=== PATIENT | female | born 1950 | race Caucasian/White ===

== ENCOUNTER 2022-11-22 14:02 | Emergency (ER) | payer OTHER, SELFPAY ==
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
[2022-11-22 14:42] VITALS: BP 146/96; PULSE 92; RESP 18; TEMP 36.6; O2SAT 98; BMI 25.7
== END 2022-11-22 15:13 | disposition home or self-care (01) ==
PROVIDERS: Emergency Provider Emergency Medicine
DX: S40.012A Contusion of left shoulder, initial encounter (principal); V43.62XA Car passenger injured in collision with other type car in traffic accident, initial encounter; Y93.9 Activity, unspecified; Y92.410 Unspecified street and highway as the place of occurrence of the external cause; Y99.9 Unspecified external cause status
CPT/HCPCS: 99282

== ENCOUNTER 2023-04-25 05:20 | Inpatient (IN) | payer OTHER, SELFPAY ==
[2023-04-25] VITALS (7 sets, daily range): BP systolic 113–178; BP diastolic 62–90; PULSE 61–72; RESP 16–17; TEMP 36.1–36.9; O2SAT 96–99; BMI 26.1; BMI 28.1
--- NOTE | ~2023-04-25 | CT_ITS ---
EXAMINATION: CT ABDOMEN AND PELVIS WITHOUT AND WITH IV CONTRAST CLINICAL INFORMATION: Diverticulitis with bleed. COMPARISON: None. TECHNIQUE: A volumetric helical CT acquisition of the abdomen and pelvis is performed prior to and following intravenous administration of contrast. Axial images are presented at 0. 0.6 mm and 5 mm slice thickness. Coronal and sagittal reformatted images were generated at the technologist workstation. The postcontrast images are obtained in the arterial and venous phases. Intravenous contrast: 85 mL of Omnipaque 350. This CT examination was performed using dose optimization techniques as appropriate, variously including the following: *Automated exposure control *Adjustment of mA and/or kV according to patient size (this includes techniques or standardized protocols for targeted exams where dose is matched to indication/reason for exam; i.e. extremities or head) *Use of iterative reconstruction technique DLP: 925 mGy-cm. FINDINGS: LUNG BASES: No acute findings. Incidentally noted is atherosclerotic calcification of the visualized right coronary artery. LIVER, GALLBLADDER, AND BILIARY TREE: The liver has normal size, shape, and attenuation. No focal hepatic lesion. The gallbladder is grossly normal; no radiopaque gallstones, wall thickening, or pericholecystic fluid. No bile duct dilatation. PANCREAS: Normal. No evidence of pancreatic mass, edema or ductal dilatation. SPLEEN: Normal. ADRENAL GLANDS: Normal. KIDNEYS AND URETERS: The kidneys have normal size, shape, and attenuation. No hydroureteronephrosis, urolithiasis or perinephric edema. BLADDER: Normal. BOWEL AND PERITONEUM: Stomach and small bowel, including terminal ileum, are unremarkable. The appendix is normal. No dilated bowel loops. There are diverticula of the right and left colon, most numerous along the sigmoid colon. There is circumferential wall thickening of the descending and sigmoid colon. On the arterial phase postcontrast images, the mucosa of the thick-walled colon is hyperenhancing. Since the descending colon is underdistended, hyperenhancing mucosa can be difficult to discriminate from any mild intraluminal bleed. When comparing the arterial with venous phase postcontrast images, there is no convincing migration of contrast into the bowel lumen. There is haziness of fat around the inflamed descending colon. No bowel perforation. No abscess. The rectum is underdistended and otherwise unremarkable. ABDOMINAL WALL: Unremarkable. LYMPH NODES: No pathologic sized lymph nodes in the abdomen or pelvis. No inguinal lymphadenopathy. VASCULATURE: Abdominal aorta is normal in caliber and its branches are widely patent. Mild atherosclerosis of the aorta. Inferior vena cava is normal. Within the pelvis, the parauterine veins are dilated and this could be a manifestation of chronic venous valve incompetence with venous reflux. PELVIC VISCERA: No uterine or adnexal mass. No pelvic free fluid. MUSCULOSKELETAL: Mild scoliosis of the degenerated lumbar spine. Degenerative disc disease of L4-L5. Mild disc space narrowing and vacuum disc phenomenon at L5-S1. Also, moderate facet osteoarthritis and grade 1 anterolisthesis at L4-L5. No suspicious bone lesions. CT/CT gi bleed abd pel wo/w IVcon IMPRESSION: * Circumferential wall thickening of the descending and sigmoid colon with pericolonic fat stranding and hyperenhancing mucosa. Findings consistent with an active left-sided colitis. Based on review of the arterial and venous phase images, there is no convincing active extravasation of contrast into the lumen of the inflamed colon. * Colonic diverticulosis is noted.
--- NOTE | 2023-04-25 07:17 | ED.ABDPAIN ---
HPI - Abdominal Pain General Chief Complaint: Abdominal Pain Stated Complaint: stomach pain, blood when defecating Time Seen by Provider: 04/25/23 07:08 Source: patient Mode of arrival: ambulatory Limitations: no limitations History of Present Illness HPI narrative: Patient is 72 years old complaining of diffuse lower abdominal pain since last night and having multiple bowel movements with blood. Blood is maroon-colored with some clots in between patient had colonoscopy 3 months ago everything was normal except for few polyps no history of hemorrhoids no prior history of rectal bleed. Patient denies any dizziness had low-grade fever yesterday also complaining of nausea urinary complaints had multiple bowel movements most of them are bloody without much stool patient had salmon at home prior to symptoms starting other family member also had same food without any symptoms Related Data Previous Rx's Medication Instructions Recorded ciprofloxacin HCl 500 mg tablet 500 mg PO BID #20 tabs 04/25/23 (Cipro) metronidazole 500 mg tablet 500 mg PO BID 7 days #20 tabs 04/25/23 Allergies Allergy/AdvReac Type Severity Reaction Status Date / Time No Known Allergies Allergy Verified 11/22/22 14:51 Review of Systems Review of Systems Yes all other systems are reviewed and are negative [facility] Past Medical History Medical History High cholesterol Hypertension Vitamin B 12 deficiency Social History Social History Alcohol intake: never Smoked in Last 30 Days: No Use of substances other than those prescribed or required for medical reasons: No Advance Directives: No Advance Directives Information Provided: No Physical Exam ED Vital Signs: Vital Signs - 24 hr 04/25/23 05:31 04/25/23 09:56 Temperature 97 F 98.1 F Pulse Rate 69 72 Respiratory Rate 16 16 Blood Pressure 178/90 H 168/88 H Pulse Oximetry 99 99 Oxygen Delivery Method Room Air Room Air BMI result Body Mass Index 26.1 Appearance: Alert. Oriented X3. No acute distress. Eyes: PERRLA, No Nystagmus ENT: Pharynx normal. Oral Mucosa moist Neck: Normal inspection. Neck supple. CVS: Normal heart rate and rhythm. Pulses normal. Respiratory: No respiratory distress. Equal air entry bilateral, no wheezing/rales/rhonchi Abdomen: Soft diffuse tenderness suprapubic and left lower quadrant no rebound tenderness or guarding. Bowel sounds are present, no mass palpable, no CVA tenderness rectal: Bright red blood on the finger no hemorrhoid palpable Skin: Skin warm and dry. Normal skin color. Normal skin turgor. Extremities: No lower extremity edema. No calf tenderness Neuro: Oriented X 3. Medical Decision Making Medical Decision Making [facility] Narrative: 11:00 Patient has acute colitis with stable labs slight leukocytosis patient able to drink liquids at home will give IV Zosyn 1 dose in the ER will re-evaluate the patient with p.o. challenge Lab Data [facility] Lab Attestation statement: I reviewed the patient's lab results. 04/25/23 07:38 04/25/23 07:38 Labs: Lab Results 04/25/23 04/25/23 04/25/23 Range/Units 07:38 07:38 07:38 WBC 12.1 H (4.8-10.8) X10*3/uL RBC 4.59 (4.20-5.50) X10*6/uL Hgb 13.4 (12.0-16.0) g/dl Hct 38.9 (37.0-47.0) % MCV 84.7 (80.0-98.0) fL MCH 29.2 (27.0-33.0) pg MCHC 34.4 (31.0-35.0) g/dl RDW 13.1 (11.0-16.0) % Plt Count 254 (160-400) X10*3/uL MPV 10.5 (9.4-12.3) fL Immature Gran % (Auto) 0.3 (0.0-0.4) % Neut % (Auto) 81.1 H (45-73) % Lymph % (Auto) 14.0 L (20-40) % Tyler % (Auto) 3.9 (2-11) % Eos % (Auto) 0.2 (0-4) % Baso % (Auto) 0.5 (0-2) % Lymph # (Auto) 1.7 (1.2-4.9) X10*3/uL Tyler # (Auto) 0.5 (0.1-1.2) X10*3/uL Eos # (Auto) 0.0 (0.0-0.4) X10*3/uL Baso # (Auto) 0.1 (0.0-0.2) X10*3/uL Abs Immat Gran (auto) 0.04 H (0.00-0.03) X10*3/uL Absolute Neuts (auto) 9.8 H (2.0-8.3) x10*3/uL Absolute Nucleated RBC 0.000 (0.0-0.012) X10*3/uL Nucleated RBC % (auto) 0.0 (0.0-0.2) /100WBC PT 12.4 (10.0-13.1) SEC INR 1.1 (0.9-1.1) Sodium (135-145) mmol/L Potassium (3.3-5.1) mmol/L Chloride (96-108) mmol/L Carbon Dioxide (22-29) mmol/L Anion Gap (12-20) BUN (9-16) mg/dL Creatinine (0.5-1.4) mg/dL Estim Creat Clear Calc Estimated GFR Random Glucose (60-115) mg/dL Lactic Acid 1.4 (0.5-2.0) mmol/L Calcium (8.4-10.2) mg/dL Total Bilirubin (0.0-1.0) mg/dL AST (5-31) U/L ALT (0-31) U/L Alkaline Phosphatase (39-117) U/L Total Protein (6.5-8.0) g/dL Albumin (3.5-5.0) g/dL Stool Occult Blood (NEGATIVE) Blood Type Antibody Screen 04/25/23 04/25/23 04/25/23 Range/Units 07:38 07:48 08:29 WBC (4.8-10.8) X10*3/uL RBC (4.20-5.50) X10*6/uL Hgb (12.0-16.0) g/dl Hct (37.0-47.0) % MCV (80.0-98.0) fL MCH (27.0-33.0) pg MCHC (31.0-35.0) g/dl RDW (11.0-16.0) % Plt Count (160-400) X10*3/uL MPV (9.4-12.3) fL Immature Gran % (Auto) (0.0-0.4) % Neut % (Auto) (45-73) % Lymph % (Auto) (20-40) % Tyler % (Auto) (2-11) % Eos % (Auto) (0-4) % Baso % (Auto) (0-2) % Lymph # (Auto) (1.2-4.9) X10*3/uL Tyler # (Auto) (0.1-1.2) X10*3/uL Eos # (Auto) (0.0-0.4) X10*3/uL Baso # (Auto) (0.0-0.2) X10*3/uL Abs Immat Gran (auto) (0.00-0.03) X10*3/uL Absolute Neuts (auto) (2.0-8.3) x10*3/uL Absolute Nucleated RBC (0.0-0.012) X10*3/uL Nucleated RBC % (auto) (0.0-0.2) /100WBC PT (10.0-13.1) SEC INR (0.9-1.1) Sodium 143 (135-145) mmol/L Potassium 3.2 L (3.3-5.1) mmol/L Chloride 106 (96-108) mmol/L Carbon Dioxide 29 (22-29) mmol/L Anion Gap 11 L (12-20) BUN 18 H (9-16) mg/dL Creatinine 0.79 (0.5-1.4) mg/dL Estim Creat Clear Calc 48.6 Estimated GFR > 60 Random Glucose 121 H (60-115) mg/dL Lactic Acid (0.5-2.0) mmol/L Calcium 9.0 (8.4-10.2) mg/dL Total Bilirubin 0.5 (0.0-1.0) mg/dL AST 15 (5-31) U/L ALT 10 (0-31) U/L Alkaline Phosphatase 69 (39-117) U/L Total Protein 6.6 (6.5-8.0) g/dL Albumin 4.1 (3.5-5.0) g/dL Stool Occult Blood POSITIVE (NEGATIVE) Blood Type O Positive Antibody Screen NEGATIVE Radiology Impression Discussion of test interpretation with radiology: I have reviewed the radiologist's reading. Radiologist Impression: CT/CT gi bleed abd pel wo/w IVcon IMPRESSION: *? Circumferential wall thickening of the descending and sigmoid colon with pericolonic fat stranding and hyperenhancing mucosa. Findings consistent with an active left-sided colitis. Based on review of the arterial and venous phase images, there is no convincing active extravasation of contrast into the lumen of the inflamed colon. *? Colonic diverticulosis is noted. Medications Administered Discontinued Medications Generic Name Dose Route Start Last Admin Trade Name Freq PRN Reason Stop Dose Admin Sodium Chloride 1,000 mls @ 999 mls/hr 04/25/23 07:18 04/25/23 08:47 Ns IV 04/25/23 08:18 Infused .Q1H1M ONE Infusion Piperacillin Sod/Tazobactam 50 mls @ 100 mls/hr 04/25/23 11:16 04/25/23 11:59 Sod 3.375 gm/ Sodium Chloride IV 04/25/23 11:45 Infused ONCE ONE Infusion Iohexol 100 ml 04/25/23 09:50 04/25/23 09:51 Iohexol 350 Mg/Ml 100 Ml Infus..Btl IV 04/25/23 09:51 85 ml ONCE ONE Administration Morphine Sulfate 4 mg 04/25/23 07:18 04/25/23 07:46 Morphine Sulfate 4 Mg/Ml Cartridge IVPUSH 04/25/23 07:19 4 mg ONCE ONE Administration Protocol Ondansetron HCl 4 mg 04/25/23 07:18 04/25/23 07:46 Ondansetron Hcl 4 Mg/2 Ml Vial IVPUSH 04/25/23 07:19 4 mg ONCE ONE Administration Discharge Plan Discharge Clinical Impression: Acute hemorrhagic colitis Patient Disposition: Home, Self-Care Instructions: Colitis (ED) Additional Instructions: Drink plenty of fluids Clear fluids advance as tolerated Take antibiotics as prescribed Follow with PCP if not better or report to the ER if worsening of bleeding Prescriptions: New ciprofloxacin HCl [Cipro] 500 mg tablet 500 mg PO BID Qty: 20 0RF metronidazole 500 mg tablet 500 mg PO BID 7 Days Qty: 20 0RF
[2023-04-25] MEDS: 0.9 % Sodium Chloride 1,000 ML 999 ML IV (07:46)
[2023-04-25] MEDS: Morphine Sulfate 4 MG/ML CARTRIDGE IVPUSH ×2 (07:46→15:01)
[2023-04-25] MEDS: ondansetron HCL 4 MG/2 ML VIAL IVPUSH (07:46)
--- NOTE | 2023-04-25 07:52 | PC.NURSE ---
iv inserted, labs drawn, ivf started per order, pt medicated per order, family at bedside, call jaramillo within reach, will continue to monitor.
[2023-04-25 07:55] LABS: MANUAL DIFF FLAG NO
[2023-04-25 07:57] LABS: Basophils Absolute Auto 0.1 X10*3/uL (0.0-0.2); Basophils Percent Auto 0.5 % (0-2); Eosinophils Percent Auto 0.2 % (0-4); Hematocrit 38.9 % (37.0-47.0); Hemoglobin 13.4 g/dl (12.0-16.0); Imm Gran Abs Auto 0.04 X10*3/uL (0.00-0.03); Imm Gran Pct Auto 0.3 % (0.0-0.4); Lymphocytes Absolute Auto 1.7 X10*3/uL (1.2-4.9); Mean Corpuscular HGB Conc 34.4 g/dl (31.0-35.0); Mean Corpuscular Hemoglobin 29.2 pg (27.0-33.0); Mean Corpuscular Volume 84.7 fL (80.0-98.0); Mean Platelet Volume 10.5 fL (9.4-12.3); Monocytes Absolute Auto 0.5 X10*3/uL (0.1-1.2); Monocytes Percent Auto 3.9 % (2-11); Neutrophils Absolute Auto 9.8 x10*3/uL (2.0-8.3); Neutrophils Percent Auto 81.1 % (45-73); Platelet Count 254 X10*3/uL (160-400); Red Blood Count 4.59 X10*6/uL (4.20-5.50); Red Cell Distribution Width 13.1 % (11.0-16.0); White Blood Count 12.1 X10*3/uL (4.8-10.8)
[2023-04-25 07:58] LABS: OBS Int Ctl Valid YES; OBS1 POSITIVE (NEGATIVE)
[2023-04-25 08:01] LABS: INTERNATIONAL NORM RATIO 1.1 (0.9-1.1); Prothrombin Time 12.4 SEC (10.0-13.1)
[2023-04-25 08:08] LABS: Lactic Acid 1.4 mmol/L (0.5-2.0)
[2023-04-25 08:50] LABS: Anion Gap 11 (12-20)
[2023-04-25 08:55] LABS: Alanine Aminotransferase 10 U/L (0-31); Albumin Level 4.1 g/dL (3.5-5.0); Alkaline Phosphatase 69 U/L (39-117); Aspartate Amino Transferase 15 U/L (5-31); Bilirubin Total 0.5 mg/dL (0.0-1.0); Blood Urea Nitrogen 18 mg/dL (9-16); Carbon Dioxide 29 mmol/L (22-29); Chloride 106 mmol/L (96-108); Creatinine Clr Calc Pharmacy 48.6; Estimated Glomerular Filt Rate > 60; Glucose Random 121 mg/dL (60-115); Potassium 3.2 mmol/L (3.3-5.1); Sodium 143 mmol/L (135-145); Total Protein 6.6 g/dL (6.5-8.0)
[2023-04-25] MEDS: iohexoL 350 MG/ML 100 ML INFUS..BTL IV (09:51)
--- NOTE | 2023-04-25 09:58 | PC.NURSE ---
patient a&ox3, family at bedside, vss, pt states her pain is currently 0/10, pt awaiting results of ct scan, call jaramillo within reach, will continue to monitor.
[2023-04-25] MEDS: Piperacillin Sodium/Tazobactam 3.375 GM in 0.9 % Sodium Chloride 50 ML IV ×3 (11:29→23:17)
--- NOTE | 2023-04-25 11:31 | PC.NURSE ---
pt medicated per MAR.
--- NOTE | 2023-04-25 14:00 | PC.NURSE ---
pt attempted PO challange per provider request- pt began having abd pain after po challange. provider notified.
--- NOTE | 2023-04-25 14:09 | PHA.MEDREC ---
Pharmacy Consult ? Medication Reconciliation Pharmacy has completed the medication reconciliation. Spoke to patient and daughter at bedside. Patient had card with meds on it.
--- NOTE | 2023-04-25 14:38 | PC.NURSE ---
patient a&ox3, vss, family at bedside, pt states since having po her pain is coming in waves ranging form 2/3 up to 10, provider is aware pt failed po challenge, call jaramillo within reach, will continue to monitor
--- NOTE | 2023-04-25 15:05 | PC.NURSE ---
pt medicated for pain per order
--- NOTE | 2023-04-25 15:20 | PM.IMHP ---
History of Present Illness Date of Service: 04/25/23 Attending physician on admission: Peggy Ulloa Chief Complaint: abdominal pain This is a 72 year female history of hypertension, hyperlipidemia who presents to the emergency department with complaints of abdominal pain. She began having left lower quadrant abdominal pain last evening around 17:00. She has had multiple bloody bowel movements with some clots. She has had a associated subjective fever and chills. Due to the persistent nature of her symptoms she presented to the emergency department for evaluation. Lab work was significant for leukocytosis of 12.1, mild hypokalemia with potassium of 3.2. CT scan of the abdomen showing circumferential wall thickening of the descending and sigmoid colon with pericolonic fat stranding consistent with active left-sided colitis. She was treated with a dose of IV Zosyn and initially the plan was to discharge her home however she was unable to tolerate p.o. and required multiple doses of IV narcotics for adequate pain control. For this reason the decision was made to admit her to the hospital for further management of acute colitis. Of note patient is a Jainism and will not accept any blood products. She had a colonoscopy in January which was reportedly normal. Review of Systems Review of Systems: Yes all other systems are reviewed and are negative Constitutional: Constitutional: Denies chills and Denies fever(s) ENT: Denies dizziness Cardiovascular: Cardiovascular: Denies chest pain, Denies palpitations and Denies dyspnea Respiratory: Respiratory: Denies cough and Denies dyspnea Gastrointestinal: Gastrointestinal: Reports abdominal pain, Reports hematochezia and Reports nausea Neurologic: Denies dizziness Endocrine: Endocrine: Denies palpitations [facility] Medical History High cholesterol Hypertension Vitamin B 12 deficiency Functional capacity: independent ambulation Family History (Updated 04/25/23 @ 15:26 by ZACHARY Mccarthy) Other Heart disease Social History Household Members: None Housing: Apartment Alcohol intake: never Patient Tobacco Use Status: Never used Tobacco Smoked in Last 30 Days: No Second Hand Smoke Exposure: No Use of substances other than those prescribed or required for medical reasons: No Currently Displaying Signs/Symptoms of Drug Intoxication Withdrawal: No Any prior treatment program specific to substance use: No Have you been hit, kicked, punched, or otherwise hurt by someone within the past year? If so, by whom?: No Do you feel safe in your current relationship?: No Is there a partner from a previous relationship who is making you feel unsafe now?: No Are you made to feel afraid or neglected: No Advance Directives: No Advance Directives Information Provided: No Do you have thoughts of harming others: None Do you have a plan to hurt others: No Plan Recently lost weight without trying: No Nutrition Risks: No Nutritional Risk Patient : No : No Poor oral hygiene: No service: No Current occupational status: retired [employer] Allergies Allergy/AdvReac Type Severity Reaction Status Date / Time No Known Allergies Allergy Verified 11/22/22 14:51 Active Medications: Current Medications Acetaminophen (Acetaminophen 325 Mg Tablet) 650 mg PO Q6H PRN PRN Reason: Pain, Mild (Pain Scale 1-3) Sodium Chloride (Ns) 1,000 mls @ 100 mls/hr IVCONT .Q10H [facility] Morphine Sulfate (Morphine Sulfate 2 Mg/Ml Cartridge) 2 mg IVPUSH Q3H PRN; Protocol PRN Reason: Pain, Severe (Pain Scale 7-10) Ondansetron HCl (Ondansetron Hcl 4 Mg/2 Ml Vial) 4 mg IVPUSH Q8H PRN PRN Reason: Nausea and Vomiting Pharmacy Consult (Consult Rx Perform Med Rec) 1 each MISCELLANE ONCE PRN PRN Reason: Consult order Sodium Chloride (0.9 % Sodium Chloride Flush 3 Ml Syringe) 3 ml IVFLUSH QSHIFT [facility] Home Medications Medication Instructions Recorded Confirmed Last Taken Type acetaminophen 325 mg tablet 650 mg PO Q6H PRN Pain 04/25/23 04/25/23 04/24/23 History (Tylenol) atorvastatin 10 mg tablet 10 mg PO Q OTHER DAY 04/25/23 04/25/23 04/22/23 History chlorthalidone 25 mg tablet 25 mg PO DAILY 04/25/23 04/25/23 04/24/23 History cholecalciferol (vitamin D3) 50 50 mcg PO DAILY 04/25/23 04/25/23 04/24/23 History mcg (2,000 unit) tablet (Vitamin D3) loratadine 10 mg tablet 10 mg PO DAILY 04/25/23 04/25/2304/24/23 History losartan 50 mg tablet 50 mg PO DAILY 04/25/23 04/25/23 04/24/23 History Physical Exam Vital Signs and Narrative: Vital Signs: Last Vital Signs Temp 97.6 F 04/25/23 14:00 Pulse 65 04/25/23 14:00 Resp 16 04/25/23 14:00 BP 113/62 04/25/23 14:00 Pulse Ox 96 04/25/23 14:00 O2 Del Method Room Air 04/25/23 14:00 BMI result Body Mass Index 26.1 Const: General: cooperative, no acute distress, alert and awake Nutritional Appearance: average body habitus Orientation/consciousness: patient oriented x3 Eyes: Pupils: Equal, round and reactive pupils present Resp: Effort & Inspection: normal respiratory effort, able to speak in complete sentences, no respiratory distress and no use of accessory muscles Auscultation: clear to auscultation bilaterally Cardio: Rate: regular rate Heart sounds: S1 normal heart sound present and S2 normal heart sound present GI: Other: tender to palpation LLQ, no guarding or rebound Inspection: No distended Palpation (GI): Soft to palpation Neuro: General: patient oriented x3, moves all extremities and CN's II-XI intact bilaterally Cranial nerves: Yes Equal, round and reactive pupils present Extrem: General: Yes no pedal edema Psych: Affect: normal affect Attitude: cooperative Results Labs 04/25/23 07:38 04/25/23 08:29 Labs: Laboratory Results - last 24 hr 04/25/23 04/25/23 04/25/23 07:38 07:38 07:38 MCV 84.7 MCH 29.2 MCHC 34.4 RDW 13.1 Plt Count 254 MPV 10.5 Immature Gran % (Auto) 0.3 Neut % (Auto) 81.1 H Lymph % (Auto) 14.0 L [place] % (Auto) 3.9 Eos % (Auto) 0.2 Baso % (Auto) 0.5 Lymph # (Auto) 1.7 [place] # (Auto) 0.5 Eos # (Auto) 0.0 Baso # (Auto) 0.1 Abs Immat Gran (auto) 0.04 H Absolute Neuts (auto) 9.8 H Absolute Nucleated RBC 0.000 Nucleated RBC % (auto) 0.0 PT 12.4 INR 1.1 Anion Gap Estim Creat Clear Calc Estimated GFR Random Glucose Lactic Acid 1.4 Calcium Total Bilirubin AST ALT Alkaline Phosphatase Total Protein Albumin Stool Occult Blood Blood Type Antibody Screen 04/25/23 04/25/23 04/25/23 07:38 07:48 08:29 MCV MCH MCHC RDW Plt Count MPV Immature Gran % (Auto) Neut % (Auto) Lymph % (Auto) [place] % (Auto) Eos % (Auto) Baso % (Auto) Lymph # (Auto) [place] # (Auto) Eos # (Auto) Baso # (Auto) Abs Immat Gran (auto) Absolute Neuts (auto) Absolute Nucleated RBC Nucleated RBC % (auto) PT INR Anion Gap 11 L Estim Creat Clear Calc 48.6 Estimated GFR > 60 Random Glucose 121 H Lactic Acid Calcium 9.0 Total Bilirubin 0.5 AST 15 ALT 10 Alkaline Phosphatase 69 Total Protein 6.6 Albumin 4.1 Stool Occult Blood POSITIVE Blood Type O Positive Antibody Screen NEGATIVE Imaging Radiologist's Impressions: Impressions Abdomen/Pelvis CT 04/25/23 09:49 IMPRESSION: * Circumferential wall thickening of the descending and sigmoid colon with pericolonic fat stranding and hyperenhancing mucosa. Findings consistent with an active left-sided colitis. Based on review of the arterial and venous phase images, there is no convincing active extravasation of contrast into the lumen of the inflamed colon. * Colonic diverticulosis is noted. Assessment and Plan (1) Acute hemorrhagic colitis: Status: Acute Plan This is a 72-year-old female with history of hypertension, hyperlipidemia who presents to the emergency department with left lower quadrant abdominal pain and rectal bleeding found to have acute colitis Acute colitis Likely infectious, lactic acid within normal limits no evidence of sepsis continue zosyn started in ED NPO advance as tolerated IVF, pain management GI consultation Rectal bleeding secondary to colitis currently normal H/H, will repeat CBC now pt is Jainism and will not accept blood products Hypokalemia likely r/t GI losses replace and follow BMP HTN hold bp meds due to active infection/soft bp HLD hold statin while NPO dvt ppx - mechanical devices secondary to rectal bleeding HCP - her oldest daughter Melisa Code status - full code Given acute colitis, rectal bleeding will likely need 2 midnight stay in the hospital for close monitoring for IV antibiotics, IV pain control, specialist evaluation Time Spent With Patient Time: Total time managing care of this patient today ____ minutes. Quality Stroke Does the patient have a stroke diagnosis?: No VTE Prior VTE?: No VTE Risk Level:: Medical - moderate - high VTE Device Contraindication: N/A - Device Ordered VTE Drug Contraindication: Treatment Not Indicated
--- NOTE | 2023-04-25 15:35 | MHC.EDTECH ---
THIS PCT ASSUMED CARE OF PT AT 1500 ,VITALS SIGN TAKEN ,REPEATED LAB DRAWN AND SENT TO LAB ,PT DRANK 120 ML WATER ,PT DAUGHTER AT BED SIDE ,PT IS COMFORTABLE AND IS WATCHING TELEVISION .
[2023-04-25] MEDS: 0.9 % Sodium Chloride Flush 3 ML SYRINGE IVFLUSH (15:46)
[2023-04-25] MEDS: Potassium Chloride Packet 20 MEQ PACKET 40 MEQ PO (15:46)
[2023-04-25] MEDS: 0.9 % Sodium Chloride 1,000 ML 100 ML IVCONT (15:46)
[2023-04-25 15:49] LABS: Hemoglobin 11.7 g/dl (12.0-16.0); Mean Corpuscular HGB Conc 33.4 g/dl (31.0-35.0); Mean Corpuscular Hemoglobin 28.5 pg (27.0-33.0); Mean Corpuscular Volume 85.2 fL (80.0-98.0); Mean Platelet Volume 10.7 fL (9.4-12.3); Platelet Count 219 X10*3/uL (160-400); Red Blood Count 4.11 X10*6/uL (4.20-5.50); Red Cell Distribution Width 13.2 % (11.0-16.0); White Blood Count 10.8 X10*3/uL (4.8-10.8)
--- NOTE | 2023-04-25 15:50 | PC.NURSE ---
pt medicated per order, ivf started per order, will continue to monitor.
--- NOTE | 2023-04-25 18:48 | MHC.EDTECH ---
patient was given clear liquid diet tray ,urine sample collected and sent to lab .
[2023-04-25 18:55] LABS: Appearance Urine Clear; Color Urine Yellow; Glucose Urine UA Negative (Negative); Leukocyte Esterase Urine Negative (Negative); Nitrite Urine Negative (Negative); PH 6.5 (5.0-9.0); Specific Gravity - Urine >= 1.030 (1.005-1.025); Urine Blood Negative (Negative); Urine Ketones Negative (Negative); Urine Protein Negative (Neg-Trace)
--- NOTE | 2023-04-25 19:07 | PC.NURSE ---
iv antibiotics running per order
--- NOTE | 2023-04-25 19:46 | MHC.EDTECH ---
pt vitals sign taken ,pt has a bed on [facility] ,pt is on her way to [facility] .
[2023-04-26] MEDS: Morphine Sulfate 2 MG/ML CARTRIDGE IVPUSH (00:54)
[2023-04-26] MEDS: 0.9 % Sodium Chloride 1,000 ML 100 ML IVCONT ×3 (02:50→22:50)
[2023-04-26 04:00] VITALS: BP 123/66; PULSE 62; RESP 15; TEMP 36.3
[2023-04-26] MEDS: Piperacillin Sodium/Tazobactam 3.375 GM in 0.9 % Sodium Chloride 50 ML IV ×3 (05:19→17:47)
[2023-04-26 06:04] LABS: Hemoglobin 11.2 g/dl (12.0-16.0); Mean Corpuscular HGB Conc 32.9 g/dl (31.0-35.0); Mean Corpuscular Hemoglobin 28.9 pg (27.0-33.0); Mean Corpuscular Volume 87.6 fL (80.0-98.0); Mean Platelet Volume 11.5 fL (9.4-12.3); Platelet Count 192 X10*3/uL (160-400); Red Blood Count 3.88 X10*6/uL (4.20-5.50); Red Cell Distribution Width 13.5 % (11.0-16.0); White Blood Count 8.8 X10*3/uL (4.8-10.8)
[2023-04-26 06:27] LABS: Anion Gap 11 (12-20); Blood Urea Nitrogen 8 mg/dL (9-16); Calcium 8.5 mg/dL (8.4-10.2); Carbon Dioxide 25 mmol/L (22-29); Chloride 108 mmol/L (96-108); Estimated Glomerular Filt Rate > 60; Glucose Random 96 mg/dL (60-115); Potassium 2.9 mmol/L (3.3-5.1); Sodium 141 mmol/L (135-145)
[2023-04-26 07:36] VITALS: BP 129/68; PULSE 64; RESP 18; TEMP 36.2; O2SAT 97
[2023-04-26] MEDS: Potassium Chloride ER 20 MEQ TAB.ER.PRT 40 MEQ PO (08:53)
--- NOTE | 2023-04-26 10:55 | P.CNGI_ITS ---
History of Present Illness Data of Consult Service Date: 04/26/23 Requesting physician: Reena Heath Primary Care Provider: Amalia PARTIDA Reason for consult: Colitis This is a 72y.o F with PMH of HTN who presented to the ER for acute onset of lower GI bleeding and was found to have left sided colitis on imaging for which GI has been consulted. History was obtained from the patient and daughter at bedside who state that the day before admission, pt was doing well and had rice and salmon for lunch, within a few hours she developed severe abdominal cramping, nausea, cold sweats and chills. She then proceeded to have loose BMs which were dark brown with maroonish blood around it. She was taken to the ER by her daughter. In the ER she was noted to be hemodynamically stable. Labs suggestive of dehydration with hemoconcentration, elevated BUN and low K. CT Abd/pel was obtained that shows significant left sided inflammation. On bedside eval today, she reports significant improvement in her abd cramping, has not had any further bloody BM since yest morning. Appetite is back. Her last colonoscopy was just a couple of months ago at [facility] and apart from a couple of polyps was normal. Review of Systems Review of Systems: Yes all other systems are reviewed and are negative PMFSH Past Medical History Medical History High cholesterol Hypertension Vitamin B 12 deficiency Functional capacity: independent ambulation Family History Family History (Updated 04/25/23 @ 15:26 by ZACHARY Mccarthy) Other Heart disease Social History Social History Household Members: None Housing: Apartment Alcohol intake: never Patient Tobacco Use Status: Never used Tobacco Smoked in Last 30 Days: No Second Hand Smoke Exposure: No Use of substances other than those prescribed or required for medical reasons: No Currently Displaying Signs/Symptoms of Drug Intoxication Withdrawal: No Any prior treatment program specific to substance use: No Have you been hit, kicked, punched, or otherwise hurt by someone within the past year? If so, by whom?: No Do you feel safe in your current relationship?: No Is there a partner from a previous relationship who is making you feel unsafe now?: No Are you made to feel afraid or neglected: No Advance Directives: No Advance Directives Information Provided: No Do you have thoughts of harming others: None Do you have a plan to hurt others: No Plan Recently lost weight without trying: No Nutrition Risks: No Nutritional Risk Patient : No : No Poor oral hygiene: No Meds Allergies Allergy/AdvReac Type Severity Reaction Status Date / Time No Known Allergies Allergy Verified 11/22/22 14:51 Active Medications: Current Medications Acetaminophen (Acetaminophen 325 Mg Tablet) 650 mg PO Q6H PRN PRN Reason: Pain, Mild (Pain Scale 1-3) Sodium Chloride (Ns) 1,000 mls @ 100 mls/hr IVCONT .Q10H [facility] Last Admin: 04/26/23 02:50 Dose: 100 mls/hr Piperacillin Sod/Tazobactam (Sod 3.375 gm/ Sodium Chloride) 50 mls @ 100 mls/hr IV Q6H [facility] Last Infusion: 04/26/23 06:08 Dose: Infused Morphine Sulfate (Morphine Sulfate 2 Mg/Ml Cartridge) 2 mg IVPUSH Q3H PRN; Protocol PRN Reason: Pain, Severe (Pain Scale 7-10) Last Admin: 04/26/23 00:54 Dose: 2 mg Ondansetron HCl (Ondansetron Hcl 4 Mg/2 Ml Vial) 4 mg IVPUSH Q8H PRN PRN Reason: Nausea and Vomiting Pharmacy Consult (Consult Rx Perform Med Rec) 1 each MISCELLANE ONCE PRN PRN Reason: Consult order Sodium Chloride (0.9 % Sodium Chloride Flush 3 Ml Syringe) [address] [facility] Last Admin: 04/26/23 07:25 Dose: Not Given Home Medications Medication Instructions Recorded Confirmed Last Taken Type acetaminophen 325 mg tablet 650 mg PO Q6H PRN Pain 04/25/23 04/25/23 04/24/23 History (Tylenol) atorvastatin 10 mg tablet 10 mg PO Q OTHER DAY 04/25/23 04/25/23 04/22/23 History chlorthalidone 25 mg tablet 25 mg PO DAILY 04/25/23 04/25/23 04/24/23 History cholecalciferol (vitamin D3) 50 50 mcg PO DAILY 04/25/23 04/25/23 04/24/23 History mcg (2,000 unit) tablet (Vitamin D3) loratadine 10 mg tablet 10 mg PO DAILY 04/25/23 04/25/23 04/24/23 History losartan 50 mg tablet 50 mg PO DAILY 04/25/23 04/25/23 04/24/23 History Physical Exam Vital Signs: Vital Signs: Last Vital Signs Temp 97.1 F 04/26/23 07:36 Pulse 64 04/26/23 07:36 Resp 18 04/26/23 07:36 BP 129/68 04/26/23 07:36 Pulse Ox 97 04/26/23 07:36 O2 Del Method Room Air 04/26/23 07:36 BMI result Body Mass Index 28.1 Gen appear: Elderly female, nontoxic appearing HEENT: nonicteric, no cervical lymphadenopathy Chest: CTA CVS: Regular S1/S2 Abd: soft, tender in epigastrium, LUQ and LLQ, nondistended, bowel sounds + Ext: no peripheral edema Neuro: A/Ox3, noted to move all extremities spontaneously Psych: interacting appropriately Results Labs 04/26/23 05:21 04/26/23 05:21 Labs: Short CBC 04/25/23 04/26/23 Range/Units 15:34 05:21 WBC 10.8 8.8 (4.8-10.8) X10*3/uL Hgb 11.7 L 11.2 L (12.0-16.0) g/dl Hct 35.0 L 34.0 L (37.0-47.0) % Plt Count 219 192 (160-400) X10*3/uL BMP 04/26/23 05:21 Sodium 141 Potassium 2.9 L Chloride 108 Carbon Dioxide 25 BUN 8 L Creatinine 0.70 Calcium 8.5 Urine 04/25/23 Range/Units 18:47 Urine Color Yellow Urine Appearance Clear Urine pH 6.5 (5.0-9.0) Ur Specific [place] >= 1.030 H (1.005-1.025) Urine Protein Negative (Neg-Trace) mg/dL Urine Glucose (UA) Negative (Negative) mg/dL Microbiology Microbiology Results: Microbiology 04/25/23 07:48 Blood - Venous Blood Culture - Preliminary No growth after 24 hours. 04/25/23 07:41 Blood - Venous Blood Culture - Preliminary No growth after 24 hours. Assessment and Plan (1) Left sided colitis: Status: Acute (2) Lower GI bleed: Status: Acute (3) Abdominal pain: Status: Acute Plan DDx include colon ischemia, infectious or inflammatory colitis. Although inflammatory colitis highly unlikely given normal colon mucosa a few months ago. Clinically has improved significantly and ready to try PO. Plan: - GI panel pending - Can start clear liquid diet and advance as tolerated - Pt aware to follow up with primary dictating transcribing machine servicer as outpatient to discuss utility of flex sig vs conservative management. - No clear indication for ABx at this time (not indicated for acute infectious GI illness and if colon ischemia, not moderate/severe based on labs and assessme nt) Thank you for allowing me to participate in the patient's care. Please do not hestitate to reach out for any questions or concerns. Time Spent With Patient Time: Total time managing care of this patient today ____ minutes. Procedures Date of Service Date of Service: 04/26/23
[2023-04-26] MEDS: Acetaminophen 325 MG TABLET 650 MG PO ×2 (11:28→17:47)
--- NOTE | 2023-04-26 12:48 | HO.PM.IMPN ---
Subjective Subjective Date of Service: 04/26/23 Review of Systems Follow up colitis no bm today mild abd pain Physical Exam Vital Signs: Vital Signs: Last Vital Signs Temp 97.1 F 04/26/23 07:36 Pulse 64 04/26/23 07:36 Resp 18 04/26/23 07:36 BP 129/68 04/26/23 07:36 Pulse Ox 97 04/26/23 07:36 O2 Del Method Room Air 04/26/23 07:36 BMI result Body Mass Index 28.1 Appearing in no acute distress lung sounds are clear to auscultation heart regular rate rhythm, clear S1, S2 positive bowel sounds, abdomen is soft, nontender neuro patient is alert x3, no focal deficits Objective Data Active Medications Acetaminophen (Acetaminophen 325 Mg Tablet) 650 mg PO Q6H PRN PRN Reason: Pain, Mild (Pain Scale 1-3) Last Admin: 04/26/23 11:28 Dose: 650 mg Documented By: MAGGIE Sodium Chloride (Ns) 1,000 mls @ 100 mls/hr IVCONT .Q10H [facility] Last Admin: 04/26/23 11:32 Dose: 100 mls/hr Documented By: MAGGIE Piperacillin Sod/Tazobactam (Sod 3.375 gm/ Sodium Chloride) 50 mls @ 100 mls/hr IV Q6H [facility] Last Infusion: 04/26/23 12:06 Dose: 0 mls/hr Documented By: MAGGIE Morphine Sulfate (Morphine Sulfate 2 Mg/Ml Cartridge) 2 mg IVPUSH Q3H PRN; Protocol PRN Reason: Pain, Severe (Pain Scale 7-10) Last Admin: 04/26/23 00:54 Dose: 2 mg Documented By: NII Ondansetron HCl (Ondansetron Hcl 4 Mg/2 Ml Vial) 4 mg IVPUSH Q8H PRN PRN Reason: Nausea and Vomiting Pharmacy Consult (Consult Rx Perform Med Rec) 1 each MISCELLANE ONCE PRN PRN Reason: Consult order Sodium Chloride (0.9 % Sodium Chloride Flush 3 Ml Syringe) 3 ml IVFLUSH QSHIFT [facility] Last Admin: 04/26/23 07:25 Dose: Not Given Documented By: MAGGIE Non-Admin Reason: IV Running Labs 04/26/23 05:21 04/26/23 05:21 Labs: Laboratory Results - last 24 hr 04/25/23 04/25/23 04/26/23 15:34 18:47 05:21 MCV 85.2 87.6 MCH 28.5 28.9 MCHC 33.4 32.9 RDW 13.2 13.5 Plt Count 219 192 MPV 10.7 11.5 Absolute Nucleated RBC 0.000 0.000 Nucleated RBC % (auto) 0.0 0.0 Anion Gap Estim Creat Clear Calc Estimated GFR Random Glucose Calcium Urine Color Yellow Urine Appearance Clear Urine pH 6.5 Ur Specific [place] >= 1.030 H Urine Protein Negative Urine Glucose (UA) Negative Urine Ketones Negative Urine Blood Negative Urine Nitrite Negative Ur Leukocyte Esterase Negative 04/26/23 05:21 MCV MCH MCHC RDW Plt Count MPV Absolute Nucleated RBC Nucleated RBC % (auto) Anion Gap 11 L Estim Creat Clear Calc 57.0 Estimated GFR > 60 Random Glucose 96 Calcium 8.5 Urine Color Urine Appearance Urine pH Ur Specific [place] Urine Protein Urine Glucose (UA) Urine Ketones Urine Blood Urine Nitrite Ur Leukocyte Esterase Microbiology Microbiology Results: Microbiology 04/25/23 07:48 Blood Culture - Preliminary Blood - Venous No growth after 24 hours. 04/25/23 07:41 Blood Culture - Preliminary Blood - Venous No growth after 24 hours. Assessment and Plan (1) Abdominal pain: Status: Acute Plan This is a 72-year-old female with history of hypertension, hyperlipidemia who presents to the emergency department with left lower quadrant abdominal pain and rectal bleeding found to have acute colitis Acute colitis Likely infectious, lactic acid within normal limits no evidence of sepsis continue zosyn started in ED NPO advance as tolerated IVF, pain management GI consultation>no need for abx, clear liquids and advance, follow up with o/p GI Rectal bleeding secondary to colitis currently normal H/H pt is Rastafari and will not accept blood products Hypokalemia likely r/t GI losses replace and follow BMP HTN hold bp meds due to active infection/soft bp HLD hold statin while NPO dvt ppx - mechanical devices secondary to rectal bleeding Attending Dr. Ulloa continued hospital stayfor close monitoring for IV antibiotics, IV pain control, specialist evaluation Time Spent With Patient Time: Total time managing care of this patient today ____ minutes. Quality Stroke Does the patient have a stroke diagnosis?: No VTE Prior VTE?: No VTE Risk Level:: Medical - moderate - high VTE Device Contraindication: N/A - Device Ordered VTE Drug Contraindication: Treatment Not Indicated
[2023-04-26 15:28] VITALS: BP 126/59; PULSE 66; RESP 18; TEMP 36.1; O2SAT 97
--- NOTE | 2023-04-26 16:12 | MHC.CM.PN ---
PT REPORT SHE LIVES ALONE AND IS FULLY INDEPENDENT WITH CARE SHE HAS NO SERVICES AND NO DME PT REPORTS SHE HAS A HCP, COPY REQUESTED SHE SAYS IT IS NOT HER FAMILY BECAUSE SHE IS WORRIED THEY WILL NOT RESPECT HER WISHES A [employer]S WITNESS PCP: JUSTIN GILMAN IMM DELIVERED CURRENT DC PLAN IS HOME VIA FAMILY TRANSPORT
[2023-04-26 16:45] LABS: Potassium 3.2 mmol/L (3.3-5.1)
[2023-04-26] MEDS: polyethylene glycoL 3350 17 GM POWD.PACK PO (18:08)
[2023-04-26 19:22] VITALS: BP 159/85; PULSE 74; RESP 18; TEMP 36.3; O2SAT 97
[2023-04-27] MEDS: Piperacillin Sodium/Tazobactam 3.375 GM in 0.9 % Sodium Chloride 50 ML IV ×2 (00:34→05:34)
[2023-04-27] MEDS: Acetaminophen 325 MG TABLET 650 MG PO (02:41)
[2023-04-27 03:41] VITALS: BP 142/77; PULSE 66; RESP 18; TEMP 36.1; O2SAT 97
[2023-04-27 07:35] VITALS: BP 142/67; PULSE 68; RESP 18; TEMP 36.1; O2SAT 99
[2023-04-27] MEDS: Potassium Chloride ER 20 MEQ TAB.ER.PRT 40 MEQ PO (07:46)
[2023-04-27] MEDS: 0.9 % Sodium Chloride 1,000 ML 100 ML IVCONT (07:46)
[2023-04-27 08:59] LABS: Campylobacter Not Detected (Not Detect.); Plesiomonas shigelloides Not Detected (Not Detect.); Salmonella Not Detected (Not Detect.); Vibrio Not Detected (Not Detect.)
[2023-04-27 09:00] LABS: Adenovirus F 40/41 Not Detected (Not Detect.); Astrovirus Not Detected (Not Detect.); Cryptosporidium Not Detected (Not Detect.); Cyclospora cayetanensis Not Detected (Not Detect.); E. coli EAEC Not Detected (Not Detect.); E. coli EPEC Not Detected (Not Detect.); E. coli ETEC Not Detected (Not Detect.); E. coli STEC Not Detected (Not Detect.); Entamoeba histolytica Not Detected (Not Detect.); Giardia lamblia Not Detected (Not Detect.); Norovirus GI/GII Not Detected (Not Detect.); Rotavirus A Not Detected (Not Detect.); Sapovirus Not Detected (Not Detect.); Shigella sp./EIEC Not Detected (Not Detect.); Vibrio Cholerae Not Detected (Not Detect.); Yersinia enterocolitica Not Detected (Not Detect.)
--- NOTE | 2023-04-27 11:16 | P.DS_ITS ---
DS: Providers Provider Date of Service: 04/27/23 Date of admission: 04/25/23 15:16 Primary care physician: Amalia Orr Consults: 04/25/23 15:16 Consult to Gastroenterology Routine Consulting Provider: Lissett Ladd Reason for consultation: colitis, GIB Has provider been notified: No DS: Diagnosis Discharge Diagnosis (1) Acute hemorrhagic colitis: Status: Acute DS: Summary Hospital Course Hospital Course: HP as per admitting provider This is a 72 year female history of hypertension, hyperlipidemia who presents to the emergency department with complaints of abdominal pain.? She began having left lower quadrant abdominal pain last evening around 17:00.? She has had multiple bloody bowel movements with some clots.? She has had a associated subjective fever and chills.? Due to the pers istent nature of her symptoms she presented to the emergency department for evaluation.? Lab work was significant for leukocytosis of 12.1, mild hypokalemia with potassium of 3.2.? CT scan of the abdomen showing circumferential wall thickening of the descending and sigmoid colon with pericolonic fat stranding consistent with active left-sided colitis.? She was treated with a dose of IV Zosyn and initially the plan was to discharge her home however she was unable to tolerate p.o. and required multiple doses of IV narcotics for adequate pain control.? For this reason the decision was made to admit her to the hospital for further management of acute colitis. Of note?patient is a [employer] and will not accept any blood products.??She had a colonoscopy in January which was reportedly normal . Acute colitis. Treated with IV Zosyn initially. Seen and evaluated by Gastroenterology, no need for antibiotics. No further episodes of bleeding. Diet advanced. No further pain noted or episodes of bleeding. Follow-up with outpatient Gastroenterology Rectal bleeding. secondary to colitis. Resolved Hypokalemia likely r/t GI losses. Home with 3 more days of oral potassium supplement HTN continue home medications HLD statin Time Spent with Patient Time attestation: Total time managing care of this patient today ____ minutes. Discharge coordination time: Greater than 30 minutes Quality: Safe Use of Opioids Does Pt have an Active Cancer Diagnosis on the Problem List?: No Quality: Stroke Does the patient have a stroke diagnosis?: No Physical Exam Vital Signs: Vital Signs: Last Vital Signs Temp 97.0 F 04/27/23 07:35 Pulse 68 04/27/23 07:35 Resp 18 04/27/23 07:35 BP 142/67 H 04/27/23 07:35 Pulse Ox 99 04/27/23 07:35 O2 Del Method Room Air 04/27/23 07:35 BMI result Body Mass Index 28.1 Appearing in no acute distress head is normocephalic atraumatic eyes pupils are PERRLA sclera is anicteric mouth throat mucous membranes are intact and moist neck is supple no lymphadenopathy, no JVD noted lung sounds are clear to auscultation heart regular rate rhythm, clear S1, S2 positive bowel sounds, abdomen is soft, nontender neuro patient is alert x3, no focal deficits DS: Data Data Completed and Pending Labs on day of discharge: Laboratory Results - last 24 hr 04/26/23 04/26/23 15:36 21:48 Potassium 3.2 L Stl C. cayetanensis PCR Not Detected Stool Rotavirus A PCR Not Detected Stl Adenov F 40/41 PCR Not Detected Stool Astrovirus (PCR) Not Detected Stool Campylobacter PCR Not Detected Stool Cryptosporidium PCR Not Detected Stl Sh Tox Pr E STEC PCR Not Detected Stool E coli O157 PCR Not applicable Stl Enterotoxigenic E PCR Not Detected Stool EPEC (PCR) Not Detected Stool EAEC (PCR) Not Detected Stl E. histolytica PCR Not Detected Stool Giardia Lamblia PCR Not Detected Stl P. shigelloides PCR Not Detected Stool Salmonella PCR Not Detected Stool Sapovirus (PCR) Not Detected Stl Shigella/EIEC PCR Not Detected St Y.enterocolitica PCR Not Detected Stool Vibrio (PCR) Not Detected Stl Vibrio cholerae PCR Not Detected Stl Norovirus GI/GII PCR Not Detected Preliminary micro results at discharge 04/25/23 07:41 Blood Culture - Preliminary Blood - Venous No growth after 48 hours. 04/25/23 07:48 Blood Culture - Preliminary Blood - Venous No growth after 48 hours. Discharge Plan Discharge Anticipated Discharge Date/Time: 04/27/23 08:21 Patient Disposition: Home, Self-Care Discharge Diagnosis: Colitis Rectal bleeding Referrals: Amalia Orr [Primary Care Provider] - 1 Week Discharge Medications: Continued losartan 50 mg tablet 50 mg PO DAILY acetaminophen [Tylenol] 325 mg Tablet 650 mg PO Q6H PRN (Reason: Pain) atorvastatin 10 mg tablet 10 mg PO Q OTHER DAY chlorthalidone 25 mg tablet 25 mg PO DAILY loratadine 10 mg tablet 10 mg PO DAILY cholecalciferol (vitamin D3) [Vitamin D3] 50 mcg (2,000 unit) tablet 50 mcg PO DAILY Discharge Orders: Discharge Order (Routine); Ordered 04/27/23 Ordered By: Kari Adame Diet: Advance to usual diet Activity on Discharge: As tolerated Stand Alone Forms: Patient Portal Discharge page Care Plan Goals: No further episodes of bleeding Health Concerns: Colitis Rectal bleeding Plan of Treatment: Follow-up with primary care provider as needed Take all medications as prescribed Assessment: See discharge summary Patient Instructions: Colitis (ED)
--- NOTE | 2023-04-27 11:23 | MHC.CM.PN ---
DP: PT HAS BEEN MEDICALLY CLEARED FOR DC HOME, NO SERVICES. FAMILY WILL TRANSPORT
== END 2023-04-27 11:45 | disposition home or self-care (01) | DRG 392 ==
LOC: HO.ED 13:38 → HO.EDOVER 15:41 → HO.S3 18:38
PROVIDERS: Admitting Provider Physician Assistant Medical; Emergency Provider Internal Medicine; PCP Internal Medicine; Visit Provider Nurse Practitioner Acute Care
DX: A09 Infectious gastroenteritis and colitis, unspecified (principal); K62.5 Hemorrhage of anus and rectum; E78.00 Pure hypercholesterolemia, unspecified; E87.6 Hypokalemia; I10 Essential (primary) hypertension; Z79.899 Other long term (current) drug therapy
CPT/HCPCS: 36415; 74178; 80048; 80053; 81003; 82272; 83605; 84132; 85025; 85027; 85610; 86850; 86900; 86901; 87040; 87507; 99221; 99285; J2270; J2405; J2543; Q9967